=== PATIENT | female | born 1985 | race Caucasian/White ===

== ENCOUNTER 2018-10-01 15:44 | Inpatient (IN) ==
[2018-10-01] MEDS ORDERED: LORazepam 1 MG Tablet PO PRN (22:18)
[2018-10-01] MEDS ORDERED: Haloperidol Inj 5 MG/ML Ampul IV.PUSH PRN (22:18)
[2018-10-02] MEDS ORDERED: Acetaminophen 325 MG Tablet PO PRN (04:27)
[2018-10-02] MEDS ORDERED: Aluminum/Magnesium/Simethacone Susp 30 ML UDC PO PRN (04:28)
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
--- NOTE | 2018-10-02 11:02 | P.DSPSY ---
Psychiatry Discharge Summary Inpatient Psychiatric care?: Yes Advance Directives: No Reason for Unknown:: Other Mental Health Advance Directive: No Health Care Proxy: No - Admission Admission Date: October 01, 2018 20:35 - Admission Diagnosis (1) Alcohol abuse with intoxication Code(s): F10.129 - Alcohol abuse with intoxication, unspecified (2) Adjustment disorder with mixed disturbance of emotions and conduct Code(s): F43.25 - Adjustment disorder with mixed disturbance of emotions and conduct Brief History: Patient is a 33-year-old white female initially comes here under Magdaleno act signed by a Dr. Pamela Osorio at [facility], dated 09/30/2018 at 20 1:40 PM that stating patient uncooperative lethargic after taking an unknown amount of medication patient seen screen in that facility urine toxicology negative blood alcohol level of 243 give any history of possibly taking Vistaril Remeron BuSpar and Motrin. Patient medically cleared and transferred to this facility under the Magdaleno act. Our EMR reviewed this is patient's first visit with us. At the present time patient sitting quietly in her room on 2700 nurse Jacqueline present throughout session patient is a thin slender mildly disheveled white female appears about her stated age with long dark black hair in a braid extending almost to her waist. Patient states she lives with her mother and stepfather have lived with them for a couple of years. She is unemployed at the present time. 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 Patient states there is also panic attacks with this. She is not certain what the precipitant was for a list but developed quite rapidly about the day prior to admission. This led to her taking with her prescribed medications and appropriately she states that he was suicidal ideation at that time. Another causative factor was her alcohol use. Patient states she drinks episodically but when she does at times is to excess. We should drink in the morning she would drink by herself there would be blacking out and passing out. She denies detox or rehab. Denies any legal issues related to this. She states she has had past hospitalizations that may have been dual alcohol and mental health. She now sees a clinician through [facility] she is prescribed for his medications as mentioned above. She has had chaotic relationships in the past and appears she is developing a new relationship now which may also be somewhat involved in her anxiety. She denies other sexual or physical abuse. Patient feels these panic attacks are extreme intense ongoing and persistent. However patient does feel better today she now denies suicidality or homicidality voices or visions. She is able contract to do no harm. She states she has made a decision to stop drinking. Thus at this time I feel patient no longer meets Magdaleno act criteria. I will lift Magdaleno act. Patient does wish discharge. That is okay with me patient to be discharged with no Rx by me, she may continue her own home scheduled psychotropic medications, follow-up through [facility] both for medication management and with her individual counselor. We will also refer to AA for meetings and for her sponsor. Thus patient will be discharged today to return to the [facility] follow-up services through [facility] Tobacco Use In Past 30 Days: No How Often Do You Have a Drink Containing Alcohol: 4 or more times a week Hospital Course: Please see dictation under brief history. Patient denies suicidality or homicidality voices or visions. Is able contract to do no harm. Patient does have appropriate follow-up in the community through [facility] health with medication management and counseling. Patient does have enough of her own home scheduled medications. This will be discharged today with no Rx by me to follow -up through [facility], may continue her own home medications. Also refer to [facility] with sponsor. Absolute abstinence. - Discharge Discharge Date: 10/02/18 - Discharge Diagnosis (1) Alcohol abuse with intoxication Diagnosis: Secondary Code(s): F10.129 - Alcohol abuse with intoxication, unspecified Status: Acute (2) Adjustment disorder with mixed disturbance of emotions and conduct Diagnosis: Principal Code(s): F43.25 - Adjustment disorder with mixed disturbance of emotions and conduct Status: Acute Discharge Disposition: Home - Discharge Instructions Discharge Diet: Regular Diet Activities You Can Perform: Regular- No Restrictions - Discharge Time > 30 minutes Mental Status Examination Appearance: Appropriate Consciousness: Alert Orientation: x4 Motor Activity: Normal gait Speech: Unremarkable Language: Adequate Fund of Knowledge: Adequate Attention and Concentration: Adequate Memory: Unremarkable Mood: Other (Euthymic to mildly dysphoric) Affect: Other (Good range and intensity) Thought Process & Associations: Intact Thought Content: Appropriate Hallucination Type: None Delusion Type: None Suicidal Ideation: No Suicidal Plan: No Suicidal Intention: No Homicidal Ideation: No Homicidal Plan: No Homicidal Intention: No Insight: Fair Judgment: Impulsive Discharge/Advance Care Plan - Results Vital Signs: Last Vital Signs Temp 98.0 F 10/02/18 05:44 Pulse 120 H 10/02/18 05:44 Resp 18 10/02/18 05:44 BP 124/69 10/02/18 05:44 Pulse Ox 97 10/02/18 05:44 Lab Results: Abnormal Lab Results 10/02/18 07:21 POC Glucose 224 H Summary of Procedures: None done Pending Results: None - Medications Number of antipsychotic medications at discharge: 0 - Discharge Care Plan Goals to Promote Your Health: * To prevent worsening of your condition and complications * To maintain your health at the optimal level Directions to Meet Your Goals: Take your medications as prescribed Follow your dietary instruction Follow activity as directed Keep your appointments as scheduled Take your immunizations and boosters as scheduled If your symptoms worsen call your PCP, if no PCP go to Urgent Care Center or Emergency Room For 27/02 questions related to your inpatient stay or results of tests pending at discharge, please contact Dr. Hermelindo Cr MD at Smoking is Dangerous to Your Health. Avoid second hand smoking
[2018-10-03] MEDS ORDERED: Mirtazapine 15 MG Tablet PO SCH (09:00)
== END 2018-10-02 14:35 | disposition home or self-care (01) | DRG 897 ==
LOC: H270 20:35
PROVIDERS: ADMIT Psychiatry & Neurology Psychiatry; ATTEND Psychiatry & Neurology Psychiatry